=== PATIENT | male | born 1970 | race Caucasian/White ===

== ENCOUNTER 2020-02-18 18:01 | Inpatient (IN) ==
[2020-02-18] MEDS ORDERED: Ondansetron 4 MG/2 ML VIAL IVP ONE (18:21)
[2020-02-18] MEDS ORDERED: Acetaminophen 325 MG TABLET PO ONE (18:21)
[2020-02-18] MEDS ORDERED: 0.9 % Sodium Chloride 1,000 ML IVC ONE ×2 (18:23→19:53)
[2020-02-18 18:59] LABS: Basophils % 0.5 %; Hematocrit 44.3 % (37.5-50.1); Hemoglobin 15.1 g/dL (12.9-16.9); Immature Granulocytes % 0.7 % (0-4); Lymphocytes # 0.9 K/mcL (0.6-4.6); Lymphocytes % 10.3 %; Mean Corpuscular HGB Conc 34.1 g/dL (31.6-35.5); Mean Corpuscular Volume 85.2 fL (83.0-100.0); Mean Platelet Volume 9.2 fL (9.4-12.4); Monocytes # 0.7 K/mcL (0.0-1.3); Monocytes % 8.4 %; Neutrophils # 6.9 K/mcL (1.6-8.9); Platelet Count 155 K/mcL (140-400); Segmented Neutrophils % 80.1 %; White Blood Count 8.6 K/mcL (4.3-11.1)
[2020-02-18 19:13] LABS: INR 1.1; Prothrombin Time 12.8 Seconds (9.4-12.1)
[2020-02-18 19:24] LABS: Alanine Aminotransferase 113 Units/L (7-52); Albumin 4.5 g/dL (3.5-5.7); Albumin/Globulin Ratio 1.6 (1.1-2.2); Alkaline Phosphatase 69 Units/L (34-104); Aspartate Amino Transferase 74 Units/L (13-39); BUN/Creatinine Ratio 23 (6-26); Bilirubin,Direct 0.2 mg/dL (0.0-0.2); Bilirubin,Indirect 0.9 mg/dL (0.0-1.0); Bilirubin,Total 1.1 mg/dL (0.3-1.0); Blood Urea Nitrogen 26 mg/dL (6-20); C-Reactive Protein 14 mg/L (Less than 10); Calcium 8.7 mg/dL (8.6-10.3); Carbon Dioxide 25 mEq/L (23-29); Chloride 96 mEq/L (98-107); Globulin 2.9 g/dL (2.4-3.5); Glucose 179 mg/dL (70-105); Lactate Dehydrogenase 186 Units/L (140-271); Magnesium 1.8 mg/dL (1.6-2.6); Osmolality,Calculated 283 (280-300); Phosphorous 2.4 mg/dL (2.7-4.5); Potassium 3.4 mEq/L (3.5-5.1); Sodium 132 mEq/L (136-145); Total Protein 7.4 g/dL (6.4-8.9); Troponin I < 0.03 ng/mL (< 0.04); eGFR For African Americans > 60 (> 60); eGFR For Non-African Americans > 60 (> 60)
[2020-02-18 19:43] LABS: Ferritin 912 ng/mL (20-250)
[2020-02-18] MEDS ORDERED: Ibuprofen 600 MG TABLET PO ONE (19:52)
[2020-02-18] MEDS ORDERED: Dexamethasone 4 MG/ML VIAL IVP ONE (19:58)
[2020-02-18] MEDS ORDERED: Naloxone 0.4 MG/ML INJ IVP PRN (23:06)
[2020-02-18] MEDS ORDERED: Ondansetron 4 MG/2 ML VIAL IVP PRN (23:06)
[2020-02-19] MEDS ORDERED: Dextrose Gel 15 GM/37.5 ML TUBE PO PRN ×2 (01:36)
[2020-02-19] MEDS ORDERED: D5% in Water 1,000 ML IVC PRN (01:36)
[2020-02-19] MEDS ORDERED: *HR* Dextrose 50 % in Water (Vial) 50 ML VIAL IVP PRN (01:36)
[2020-02-19] MEDS ORDERED: 0.9 % Sodium Chloride 250 ML IVC SCH (01:45)
[2020-02-19] MEDS ORDERED: Pantoprazole 40 MG VIAL IVP SCH (02:00)
[2020-02-19] MEDS: Acetaminophen 325 MG TABLET PO PRN ×2 (02:20→08:22)
[2020-02-19] MEDS: Melatonin 3 MG TABLET PO PRN (02:32)
[2020-02-19] MEDS ORDERED: Potassium Chloride 40 MEQ, Lidocaine 1% 2 ML in 0.9 % Sodium Chloride 500 ML IVPB ONE (03:30)
[2020-02-19] MEDS: *HR* Heparin 5,000 UNIT/ML VIAL SQ SCH ×2 (04:36→17:08)
[2020-02-19] MEDS ORDERED: Chloraseptic Spray 177 ML BOTTLE MM PRN (05:34)
[2020-02-19 05:48] LABS: Basophils % 0.1 %; Hematocrit 44.2 % (37.5-50.1); Hemoglobin 14.8 g/dL (12.9-16.9); Immature Granulocytes % 0.3 % (0-4); Lymphocytes # 0.5 K/mcL (0.6-4.6); Mean Corpuscular HGB Conc 33.5 g/dL (31.6-35.5); Mean Corpuscular Volume 86.7 fL (83.0-100.0); Mean Platelet Volume 9.2 fL (9.4-12.4); Monocytes # 0.5 K/mcL (0.0-1.3); Monocytes % 7.3 %; Neutrophils # 6.3 K/mcL (1.6-8.9); Platelet Count 148 K/mcL (140-400); Red Cell Distribution Width 13.1 % (11.5-14.5); Segmented Neutrophils % 85.3 %; White Blood Count 7.4 K/mcL (4.3-11.1)
[2020-02-19 05:51] LABS: Fibrinogen 405 mg/dL (169-393)
[2020-02-19 05:54] LABS: D-Dimer 1788 ng/mLFEU (0-500)
[2020-02-19 06:47] LABS: Alanine Aminotransferase 89 Units/L (7-52); Albumin 4.3 g/dL (3.5-5.7); Albumin/Globulin Ratio 1.5 (1.1-2.2); Alkaline Phosphatase 56 Units/L (34-104); Aspartate Amino Transferase 49 Units/L (13-39); BUN/Creatinine Ratio 17 (6-26); Bilirubin,Total 1.1 mg/dL (0.3-1.0); Blood Urea Nitrogen 20 mg/dL (6-20); Calcium 8.6 mg/dL (8.6-10.3); Carbon Dioxide 26 mEq/L (23-29); Chloride 97 mEq/L (98-107); Globulin 2.9 g/dL (2.4-3.5); Glucose 218 mg/dL (70-105); Osmolality,Calculated 283 (280-300); Sodium 132 mEq/L (136-145); Total Protein 7.2 g/dL (6.4-8.9); eGFR For African Americans > 60 (> 60); eGFR For Non-African Americans > 60 (> 60)
[2020-02-19] MEDS: cefTRIAXone 2,000 MG in Water for inj. (sterile) 20 ML IVP SCH (08:19)
[2020-02-19] MEDS: Dexamethasone 4 MG/ML VIAL IVP SCH (08:19)
[2020-02-19] MEDS: Azithromycin 500 MG in 0.9 % Sodium Chloride 250 ML IVPB SCH (08:20)
[2020-02-19] MEDS: Insulin LISPRO 300 UNITS/3 ML VIAL SQ SCH ×4 (08:21→19:39)
[2020-02-19 10:37] LABS: Estimated Average Glucose 189 mg/dl
[2020-02-19] MEDS ORDERED: Acetaminophen IV 1,000 MG/100 ML INFUS..BTL IVPB ONE (13:58)
[2020-02-19] MEDS: *HR* LORazepam 2 MG/ML VIAL IVP PRN ×2 (14:02→20:03)
[2020-02-19] MEDS ORDERED: Isovue-370 500 ML BOTTLE IVP ONE (15:21)
[2020-02-19] MEDS ORDERED: Furosemide 40 MG/4 ML VIAL IVP ONE ×2 (15:22→22:00)
[2020-02-19] MEDS ORDERED: Dexamethasone 4 MG/ML VIAL IVP ONE (15:47)
[2020-02-19] MEDS ORDERED: 0.9 % Sodium Chloride 250 ML ONE (17:39)
[2020-02-19] MEDS: Ibuprofen 400 MG TABLET PO PRN (18:47)
[2020-02-19] MEDS: Insulin DETEMIR 100 UNIT/ML X5UNITS SQ SCH (20:04)
[2020-02-20] MEDS: *HR* LORazepam 2 MG/ML VIAL IVP PRN ×2 (00:08→04:18)
[2020-02-20 01:09] LABS: Hematocrit 45.4 % (37.5-50.1); Mean Corpuscular Hemoglobin 27.9 pg (28.0-33.3); Mean Corpuscular Volume 84.5 fL (83.0-100.0); Mean Platelet Volume 9.2 fL (9.4-12.4); Platelet Count 135 K/mcL (140-400); Red Blood Count 5.37 M/mcL (4.19-5.50); Red Cell Distribution Width 13.2 % (11.5-14.5); White Blood Count 11.1 K/mcL (4.3-11.1)
[2020-02-20 01:16] LABS: INR 1.1; Prothrombin Time 13.1 Seconds (9.4-12.1)
[2020-02-20 01:21] LABS: D-Dimer 4730 ng/mLFEU (0-500); Fibrinogen 716 mg/dL (169-393)
[2020-02-20 01:29] LABS: Alanine Aminotransferase 75 Units/L (7-52); Albumin 4.7 g/dL (3.5-5.7); Albumin/Globulin Ratio 1.5 (1.1-2.2); Alkaline Phosphatase 51 Units/L (34-104); Aspartate Amino Transferase 44 Units/L (13-39); BUN/Creatinine Ratio 19 (6-26); Bilirubin,Total 1.2 mg/dL (0.3-1.0); Blood Urea Nitrogen 21 mg/dL (6-20); Calcium 8.9 mg/dL (8.6-10.3); Carbon Dioxide 29 mEq/L (23-29); Chloride 94 mEq/L (98-107); Globulin 3.2 g/dL (2.4-3.5); Glucose 238 mg/dL (70-105); Osmolality,Calculated 287 (280-300); Potassium 4.2 mEq/L (3.5-5.1); Sodium 133 mEq/L (136-145); Total Protein 7.9 g/dL (6.4-8.9); eGFR For African Americans > 60 (> 60); eGFR For Non-African Americans > 60 (> 60)
[2020-02-20 01:38] LABS: Lymphocytes # 0.9 K/mcL (0.6-4.6); Monocytes # 0.4 K/mcL (0.0-1.3); Neutrophils # 9.1 K/mcL (1.6-8.9); Platelet Estimate Normal (Normal)
[2020-02-20 03:02] LABS: Acinetobacter baumannii by PCR Not Detected (Not Detect); Enterobacter cloacae Cmplx PCR Not Detected (Not Detect); Enterobacteriaceae by PCR Not Detected (Not Detect); Enterococcus by PCR Not Detected (Not Detect); Escherichia coli by PCR Not Detected (Not Detect); Klebsiella oxytoca by PCR Not Detected (Not Detect); Staphylococcus aureus by PCR Not Detected (Not Detect); Staphylococcus by PCR DETECTED (Not Detect); Streptococcus agalactiae(B)PCR Not Detected (Not Detect); Streptococcus by PCR Not Detected (Not Detect); Streptococcus pneumoniae PCR Not Detected (Not Detect); Streptococcus pyogenes (A) PCR Not Detected (Not Detect); mecA Methicillin-Resist Gene Not Detected (Not Detect)
[2020-02-20 03:03] LABS: Candida albicans by PCR Not Detected (Not Detect); Candida glabrata by PCR Not Detected (Not Detect); Candida krusei by PCR Not Detected (Not Detect); Candida parapsilosis by PCR Not Detected (Not Detect); Candida tropicalis by PCR Not Detected (Not Detect); Klebsiella pneumoniae by PCR Not Detected (Not Detect); Proteus by PCR Not Detected (Not Detect); Pseudomonas aeruginosa by PCR Not Detected (Not Detect); Serratia marcescens by PCR Not Detected (Not Detect)
[2020-02-20] MEDS ORDERED: *HR* Enoxaparin 40 MG/0.4 ML SYRINGE SQ SCH (06:00)
[2020-02-20] MEDS: Azithromycin 500 MG in 0.9 % Sodium Chloride 250 ML IVPB SCH (08:53)
[2020-02-20] MEDS: Dexamethasone 4 MG/ML VIAL IVP SCH (08:53)
[2020-02-20] MEDS: Insulin LISPRO 300 UNITS/3 ML VIAL SQ SCH ×5 (08:54→21:12)
[2020-02-20] MEDS: cefTRIAXone 2,000 MG in Water for inj. (sterile) 20 ML IVP SCH (08:54)
[2020-02-20] MEDS ORDERED: Azithromycin 500 MG VIAL ONE (09:01)
[2020-02-20] MEDS ORDERED: Water for inj. (sterile) 20 ML IV ONE (09:01)
[2020-02-20] MEDS ORDERED: Dexamethasone 4 MG/ML VIAL IVP ONE (10:05)
[2020-02-20] MEDS ORDERED: *HR* Heparin 5,000 UNIT/ML VIAL IVP PRN ×2 (10:06)
[2020-02-20] MEDS: Heparin 25,000UNIT/250ML 1/2NS 25,000 UNIT/250 ML IV.SOLN IVC SCH (12:18)
[2020-02-20] MEDS: Furosemide 40 MG/4 ML VIAL IVP SCH ×2 (12:18→20:24)
[2020-02-20] MEDS: Ibuprofen 400 MG TABLET PO PRN (12:36)
[2020-02-20] MEDS: Insulin DETEMIR 100 UNIT/ML X5UNITS SQ SCH (21:12)
[2020-02-20] MEDS: Acetaminophen 325 MG TABLET PO PRN (21:14)
[2020-02-20] MEDS: Benzonatate 100 MG CAPSULE PO PRN (21:14)
[2020-02-21 00:51] LABS: Basophils % 0.1 %; Hematocrit 41.7 % (37.5-50.1); Hemoglobin 14.2 g/dL (12.9-16.9); Immature Granulocytes % 0.2 % (0-4); Lymphocytes # 0.7 K/mcL (0.6-4.6); Lymphocytes % 7.3 %; Mean Corpuscular HGB Conc 34.1 g/dL (31.6-35.5); Mean Corpuscular Hemoglobin 28.7 pg (28.0-33.3); Mean Corpuscular Volume 84.2 fL (83.0-100.0); Mean Platelet Volume 9.5 fL (9.4-12.4); Monocytes # 0.7 K/mcL (0.0-1.3); Monocytes % 7.2 %; Neutrophils # 7.8 K/mcL (1.6-8.9); Platelet Count 156 K/mcL (140-400); Red Blood Count 4.95 M/mcL (4.19-5.50); Red Cell Distribution Width 12.9 % (11.5-14.5); Segmented Neutrophils % 85.2 %; White Blood Count 9.2 K/mcL (4.3-11.1)
[2020-02-21 00:53] LABS: Heparin anti-factor XA UFH 0.63 IU/mL (0.30-0.70)
[2020-02-21 01:05] LABS: Alanine Aminotransferase 54 Units/L (7-52); Albumin 4.2 g/dL (3.5-5.7); Albumin/Globulin Ratio 1.3 (1.1-2.2); Alkaline Phosphatase 49 Units/L (34-104); Aspartate Amino Transferase 29 Units/L (13-39); BUN/Creatinine Ratio 36 (6-26); Bilirubin,Total 0.9 mg/dL (0.3-1.0); Blood Urea Nitrogen 33 mg/dL (6-20); Calcium 9.3 mg/dL (8.6-10.3); Carbon Dioxide 31 mEq/L (23-29); Chloride 91 mEq/L (98-107); Globulin 3.3 g/dL (2.4-3.5); Glucose 228 mg/dL (70-105); Osmolality,Calculated 290 (280-300); Potassium 3.9 mEq/L (3.5-5.1); Sodium 133 mEq/L (136-145); Total Protein 7.5 g/dL (6.4-8.9); eGFR For African Americans > 60 (> 60); eGFR For Non-African Americans > 60 (> 60)
[2020-02-21 01:33] LABS: INR 1.2; Prothrombin Time 13.4 Seconds (9.4-12.1)
[2020-02-21] MEDS: Heparin 25,000UNIT/250ML 1/2NS 25,000 UNIT/250 ML IV.SOLN IVC SCH (03:34)
[2020-02-21] MEDS: cefTRIAXone 2,000 MG in Water for inj. (sterile) 20 ML IVP SCH (07:32)
[2020-02-21] MEDS: Azithromycin 500 MG in 0.9 % Sodium Chloride 250 ML IVPB SCH (07:33)
[2020-02-21] MEDS: Dexamethasone 4 MG/ML VIAL IVP SCH (07:33)
[2020-02-21] MEDS: Furosemide 40 MG/4 ML VIAL IVP SCH ×2 (07:34→20:45)
[2020-02-21] MEDS: Insulin LISPRO 300 UNITS/3 ML VIAL SQ SCH ×4 (08:02→20:47)
[2020-02-21] MEDS: *HR* LORazepam 2 MG/ML VIAL IVP PRN ×2 (09:52→21:05)
[2020-02-21] MEDS: Insulin DETEMIR 100 UNIT/ML X5UNITS SQ SCH (20:45)
[2020-02-21] MEDS: Melatonin 3 MG TABLET PO PRN (21:05)
[2020-02-21] MEDS: Benzonatate 100 MG CAPSULE PO PRN (21:05)
[2020-02-22 05:16] LABS: Basophils % 0.3 %; Hematocrit 42.4 % (37.5-50.1); Immature Granulocytes % 0.8 % (0-4); Lymphocytes # 0.7 K/mcL (0.6-4.6); Lymphocytes % 8.6 %; Mean Corpuscular Hemoglobin 28.5 pg (28.0-33.3); Mean Corpuscular Volume 86.4 fL (83.0-100.0); Mean Platelet Volume 9.5 fL (9.4-12.4); Monocytes # 0.6 K/mcL (0.0-1.3); Monocytes % 8.2 %; Neutrophils # 6.3 K/mcL (1.6-8.9); Platelet Count 166 K/mcL (140-400); Red Blood Count 4.91 M/mcL (4.19-5.50); Red Cell Distribution Width 12.7 % (11.5-14.5); Segmented Neutrophils % 82.1 %; White Blood Count 7.6 K/mcL (4.3-11.1)
[2020-02-22 05:23] LABS: Alanine Aminotransferase 36 Units/L (7-52); Albumin/Globulin Ratio 1.2 (1.1-2.2); Alkaline Phosphatase 53 Units/L (34-104); Aspartate Amino Transferase 16 Units/L (13-39); BUN/Creatinine Ratio 37 (6-26); Bilirubin,Total 0.7 mg/dL (0.3-1.0); Blood Urea Nitrogen 36 mg/dL (6-20); Calcium 9.5 mg/dL (8.6-10.3); Carbon Dioxide 33 mEq/L (23-29); Chloride 91 mEq/L (98-107); Globulin 3.4 g/dL (2.4-3.5); Glucose 248 mg/dL (70-105); Osmolality,Calculated 291 (280-300); Potassium 4.1 mEq/L (3.5-5.1); Sodium 132 mEq/L (136-145); Total Protein 7.4 g/dL (6.4-8.9); eGFR For African Americans > 60 (> 60); eGFR For Non-African Americans > 60 (> 60)
[2020-02-22] MEDS: Benzonatate 100 MG CAPSULE PO PRN (05:24)
[2020-02-22] MEDS: Acetaminophen 325 MG TABLET PO PRN (05:30)
[2020-02-22 05:54] LABS: D-Dimer 1316 ng/mLFEU (0-500); Fibrinogen 922 mg/dL (169-393)
[2020-02-22 06:32] LABS: Prothrombin Time 12.1 Seconds (9.4-12.1)
[2020-02-22] MEDS: Dexamethasone 4 MG/ML VIAL IVP SCH (08:45)
[2020-02-22] MEDS: Furosemide 40 MG/4 ML VIAL IVP SCH ×2 (08:46→20:41)
[2020-02-22] MEDS: cefTRIAXone 2,000 MG in Water for inj. (sterile) 20 ML IVP SCH (08:46)
[2020-02-22] MEDS: Azithromycin 500 MG in 0.9 % Sodium Chloride 250 ML IVPB SCH (08:47)
[2020-02-22] MEDS: Insulin LISPRO 300 UNITS/3 ML VIAL SQ SCH ×5 (08:50→20:42)
[2020-02-22] MEDS: *HR* Enoxaparin 40 MG/0.4 ML SYRINGE SQ SCH (17:11)
[2020-02-22] MEDS: Insulin DETEMIR 100 UNIT/ML X5UNITS SQ SCH (20:41)
[2020-02-23 04:54] LABS: INR 1.1; Prothrombin Time 12.9 Seconds (9.4-12.1)
[2020-02-23 05:06] LABS: Basophils # 0.1 K/mcL (0.0-0.2); Basophils % 0.8 %; Hematocrit 43.7 % (37.5-50.1); Immature Granulocytes % 2.5 % (0-4); Lymphocytes # 1.2 K/mcL (0.6-4.6); Lymphocytes % 10.9 %; Mean Corpuscular HGB Conc 34.3 g/dL (31.6-35.5); Mean Corpuscular Hemoglobin 29.3 pg (28.0-33.3); Mean Corpuscular Volume 85.4 fL (83.0-100.0); Mean Platelet Volume 9.9 fL (9.4-12.4); Monocytes # 0.9 K/mcL (0.0-1.3); Monocytes % 8.7 %; Neutrophils # 8.2 K/mcL (1.6-8.9); Platelet Count 231 K/mcL (140-400); Red Blood Count 5.12 M/mcL (4.19-5.50); Red Cell Distribution Width 12.4 % (11.5-14.5); Segmented Neutrophils % 77.1 %; White Blood Count 10.7 K/mcL (4.3-11.1)
[2020-02-23] MEDS: *HR* Enoxaparin 40 MG/0.4 ML SYRINGE SQ SCH (05:25)
[2020-02-23] MEDS ORDERED: Saline Nasal Spray 44 ML BOTTLE NS PRN (08:19)
[2020-02-23] MEDS ORDERED: Dexamethasone Sodium Phos/PF 10 MG/ML VIAL IVP ONE (09:00)
[2020-02-23] MEDS: Insulin LISPRO 300 UNITS/3 ML VIAL SQ SCH ×7 (09:10→20:16)
[2020-02-23] MEDS: cefTRIAXone 2,000 MG in Water for inj. (sterile) 20 ML IVP SCH (09:11)
[2020-02-23] MEDS: Azithromycin 500 MG in 0.9 % Sodium Chloride 250 ML IVPB SCH (09:12)
[2020-02-23] MEDS: Furosemide 40 MG/4 ML VIAL IVP SCH (09:12)
[2020-02-23] MEDS ORDERED: Insulin DETEMIR 100 UNIT/ML X5UNITS SQ SCH ×2 (14:45→21:00)
[2020-02-23 19:19] LABS: D-Dimer 1156 ng/mLFEU (0-500)
[2020-02-23 19:33] LABS: Alanine Aminotransferase 36 Units/L (7-52); Albumin 3.7 g/dL (3.5-5.7); Albumin/Globulin Ratio 1.2 (1.1-2.2); Alkaline Phosphatase 54 Units/L (34-104); Aspartate Amino Transferase 23 Units/L (13-39); BUN/Creatinine Ratio 34 (6-26); Bilirubin,Total 0.5 mg/dL (0.3-1.0); Blood Urea Nitrogen 40 mg/dL (6-20); Calcium 9.1 mg/dL (8.6-10.3); Carbon Dioxide 25 mEq/L (23-29); Chloride 89 mEq/L (98-107); Globulin 3.1 g/dL (2.4-3.5); Glucose 481 mg/dL (70-105); Osmolality,Calculated 297 (280-300); Potassium 4.3 mEq/L (3.5-5.1); Sodium 128 mEq/L (136-145); Total Protein 6.8 g/dL (6.4-8.9); eGFR For African Americans > 60 (> 60); eGFR For Non-African Americans > 60 (> 60)
[2020-02-23 19:43] LABS: Fibrinogen 716 mg/dL (169-393)
[2020-02-24] MEDS: *HR* Enoxaparin 40 MG/0.4 ML SYRINGE SQ SCH (05:01)
[2020-02-24 05:29] LABS: Basophils % 0.1 %; D-Dimer 1330 ng/mLFEU (0-500); Fibrinogen 672 mg/dL (169-393); Hematocrit 44.1 % (37.5-50.1); Hemoglobin 14.5 g/dL (12.9-16.9); INR 1.1; Immature Granulocytes % 8.2 % (0-4); Lymphocytes # 1.5 K/mcL (0.6-4.6); Lymphocytes % 11.4 %; Mean Corpuscular HGB Conc 32.9 g/dL (31.6-35.5); Mean Corpuscular Hemoglobin 27.8 pg (28.0-33.3); Mean Corpuscular Volume 84.6 fL (83.0-100.0); Mean Platelet Volume 9.7 fL (9.4-12.4); Monocytes # 1.5 K/mcL (0.0-1.3); Monocytes % 11.3 %; Neutrophils # 9.3 K/mcL (1.6-8.9); Platelet Count 259 K/mcL (140-400); Prothrombin Time 12.9 Seconds (9.4-12.1); Red Blood Count 5.21 M/mcL (4.19-5.50); Red Cell Distribution Width 12.5 % (11.5-14.5); White Blood Count 13.5 K/mcL (4.3-11.1)
[2020-02-24 05:46] LABS: Alanine Aminotransferase 35 Units/L (7-52); Albumin 3.6 g/dL (3.5-5.7); Albumin/Globulin Ratio 1.1 (1.1-2.2); Alkaline Phosphatase 51 Units/L (34-104); Aspartate Amino Transferase 21 Units/L (13-39); BUN/Creatinine Ratio 41 (6-26); Bilirubin,Total 0.7 mg/dL (0.3-1.0); Blood Urea Nitrogen 38 mg/dL (6-20); Calcium 9.2 mg/dL (8.6-10.3); Carbon Dioxide 30 mEq/L (23-29); Chloride 92 mEq/L (98-107); Globulin 3.2 g/dL (2.4-3.5); Glucose 276 mg/dL (70-105); Osmolality,Calculated 293 (280-300); Potassium 4.3 mEq/L (3.5-5.1); Sodium 132 mEq/L (136-145); Total Protein 6.8 g/dL (6.4-8.9); eGFR For African Americans > 60 (> 60); eGFR For Non-African Americans > 60 (> 60)
[2020-02-24 05:55] LABS: Platelet Estimate Normal (Normal); Reactive Lymphocytes Present (Not Present)
[2020-02-24 05:56] LABS: Large Platelets Present (Not Present)
[2020-02-24] MEDS: Dexamethasone Sodium Phos/PF 10 MG/ML VIAL IVP SCH (08:00)
[2020-02-24] MEDS: Furosemide 40 MG/4 ML VIAL IVP SCH (08:00)
[2020-02-24] MEDS: Insulin LISPRO 300 UNITS/3 ML VIAL SQ SCH ×7 (08:00→20:41)
[2020-02-24] MEDS ORDERED: Insulin DETEMIR 100 UNIT/ML X5UNITS SQ SCH (21:00)
[2020-02-25] MEDS: *HR* Enoxaparin 40 MG/0.4 ML SYRINGE SQ SCH (05:03)
[2020-02-25 05:04] LABS: Basophils % 0.1 %; Eosinophils % 0.1 %; Hematocrit 45.2 % (37.5-50.1); Hemoglobin 15.4 g/dL (12.9-16.9); Immature Granulocytes % 12.6 % (0-4); Lymphocytes # 2.6 K/mcL (0.6-4.6); Lymphocytes % 17.6 %; Mean Corpuscular HGB Conc 34.1 g/dL (31.6-35.5); Mean Corpuscular Hemoglobin 28.9 pg (28.0-33.3); Mean Platelet Volume 9.6 fL (9.4-12.4); Monocytes # 1.8 K/mcL (0.0-1.3); Monocytes % 12.3 %; Neutrophils # 8.5 K/mcL (1.6-8.9); Platelet Count 286 K/mcL (140-400); Red Blood Count 5.32 M/mcL (4.19-5.50); Red Cell Distribution Width 12.4 % (11.5-14.5); Segmented Neutrophils % 57.3 %; White Blood Count 14.9 K/mcL (4.3-11.1)
[2020-02-25 05:08] LABS: Magnesium 2.4 mg/dL (1.6-2.6); Phosphorous 3.6 mg/dL (2.7-4.5)
[2020-02-25 05:10] LABS: Alanine Aminotransferase 40 Units/L (7-52); Albumin 3.7 g/dL (3.5-5.7); Albumin/Globulin Ratio 1.2 (1.1-2.2); Alkaline Phosphatase 51 Units/L (34-104); Aspartate Amino Transferase 28 Units/L (13-39); BUN/Creatinine Ratio 43 (6-26); Bilirubin,Total 0.8 mg/dL (0.3-1.0); Blood Urea Nitrogen 39 mg/dL (6-20); Calcium 9.3 mg/dL (8.6-10.3); Carbon Dioxide 29 mEq/L (23-29); Chloride 92 mEq/L (98-107); Globulin 3.1 g/dL (2.4-3.5); Glucose 213 mg/dL (70-105); Osmolality,Calculated 288 (280-300); Sodium 131 mEq/L (136-145); Total Protein 6.8 g/dL (6.4-8.9); eGFR For African Americans > 60 (> 60); eGFR For Non-African Americans > 60 (> 60)
[2020-02-25 06:51] LABS: Platelet Estimate Normal (Normal)
[2020-02-25] MEDS: Dexamethasone Sodium Phos/PF 10 MG/ML VIAL IVP SCH (09:06)
[2020-02-25] MEDS: Furosemide 40 MG/4 ML VIAL IVP SCH (09:06)
[2020-02-25] MEDS: Insulin LISPRO 300 UNITS/3 ML VIAL SQ SCH ×4 (09:06→12:05)
[2020-02-25] MEDS ORDERED: Phenylephrine Nasal 0.25% 15 ML BOTTLE NS ONE (12:14)
[2020-02-25 13:26] VITALS: BP 115/85
== END 2020-02-25 15:28 | disposition home or self-care (01) | DRG 177 ==
LOC: EMEROOARM 18:01 → 2NENU 18:01 → SUATTDRO 20:44 → 2NENU 21:22
PROVIDERS: ADMIT Internal Medicine; ATTEND Internal Medicine